=== PATIENT | female | born 1935 | race Caucasian/White ===

== ENCOUNTER → 2016-07-12 | Outpatient (CLI) | payer MEDICARE, BC ==
[~2016-07-12] MED LIST: CALTRATE-600 W600 MG PO; CARDI-OMEGA1000 MG PO; CENTRUM SILVER1 TA1 PO; COMPLETE SENIOR1 TA1 PO; DULERA1 ARO IH; MULTIVITAMIN FO1 CAP PO; OMEGA-3 FISH1000 MG PO; OYSCO 500500 M1 PO; PROAIR HFA0.09 MG/AC IH; RECLAST5 MG/100 M IV; RECLAST5 MG/1001 IV; SYNTHROID 0.0.025 MG PO; VITAMIN D31000 I1 PO; [UNRECOGNIZED DRUG - OTHER] PO
== END ==
LOC: COL.RAD 10:51
DX: R22.2 Localized swelling, mass and lump, trunk (principal); E78.5 Hyperlipidemia, unspecified
CPT/HCPCS: Q9967

== ENCOUNTER → 2016-08-09 | Outpatient (CLI) | payer MEDICARE, BC | LOC: COL.CARD 12:46 | DX: R41.3 Other amnesia (principal) ==

== ENCOUNTER → 2016-10-02 | Outpatient (CLI) | payer MEDICARE, BC | LOC: COL.RAD 08:07 | DX: G31.9 Degenerative disease of nervous system, unspecified (principal) | CPT/HCPCS: A9585 ==

== ENCOUNTER 2016-11-21 15:15 | Outpatient (RCR) | payer MEDICARE, BC | END 2016-11-22 07:42 | disposition home or self-care (01) | LOC: WSST 15:15 | DX: R47.01 Aphasia (principal) | CPT/HCPCS: G9159-GN; G9160-GN; G9161-GN ==

== ENCOUNTER → 2017-01-18 | Outpatient (CLI) | payer MEDICARE, BC | LOC: COL.RAD 10:17 | DX: K76.89 Other specified diseases of liver (principal) ==

== ENCOUNTER → 2018-05-02 | Outpatient (CLI) | payer MEDICARE, BC ==
[2018-05-02 18:36] LABS: COLLECTION METHOD CLEAN CATCH
[2018-05-02 18:47] LABS: MUCOUS Present /lpf; PH 5 (5-8); SQUAMOUS EPITHELIAL 0-2 /hpf; URINE APPEARANCE Clear; URINE BACTERIA None Seen /hpf; URINE BILIRUBIN Negative (NEGATIVE); URINE BLOOD Negative (NEGATIVE); URINE COLOR Yellow; URINE GLUCOSE Negative (NEGATIVE); URINE KETONE Negative (NEGATIVE); URINE LEUKOCYTE ESTERASE Trace (NEGATIVE); URINE NITRATE Negative (NEGATIVE); URINE PROTEIN(semi-quant) Negative (NEGATIVE); URINE UROBILINOGEN Negative (NEGATIVE)
== END ==
LOC: COL.LAB 18:16
PROVIDERS: Internal Medicine
DX: R41.82 Altered mental status, unspecified (principal)

== ENCOUNTER 2019-09-29 13:36 | Emergency (ER) | payer MEDICARE, BC ==
[~2019-09-29] VITALS: Ht 165.1 cm; Wt 63.6 kg
[2019-09-29 13:41] VITALS: TEMP 98.4
[2019-09-29 14:30] LABS: COLLECTION METHOD CLEAN CATCH
[2019-09-29 14:43] LABS: ALANINE AMINOTRANSFERASE 22 U/L (4-34); ALBUMIN 3.9 gm/dL (3.5-5.0); ALKALINE PHOSPHATASE 94 U/L (50-136); ANION GAP 7 mmol/L (7-16); AST,SGOT 33 U/L (15-37); BILIRUBIN,TOTAL 0.5 mg/dL (0.0-1.0); BLOOD UREA NITROGEN 15 mg/dL (7-17); CALCIUM 9.3 mg/dL (8.4-10.2); CARBON DIOXIDE 23 mmol/L (22-30); CHLORIDE 106 mmol/L (98-107); CREATININE, serum 0.78 (0.52-1.25); GLUCOSE 87 mg/dL (74-106); POTASSIUM 3.8 mmol/L (3.4-5.0); SODIUM 136 mmol/L (137-145); TOTAL PROTEIN 7.1 gm/dL (6.4-8.2)
[2019-09-29 14:44] LABS: BASO # 0.1 (0.0-0.2); BASO % 0.8 % (0.0-2.0); EOS # 0.2 (0.0-0.7); EOS % 2.9 % (0-4.0); GRAN # 3.2 (1.4-6.5); GRAN % 54.6 % (42.2-75.2); HEMATOCRIT 37.8 % (37.0-47.0); HEMOGLOBIN 12.6 g/dl (12.5-16.0); LYMPH # 1.8 (1.2-3.4); LYMPH % 30.2 % (20.0-51.0); MEAN CELL VOLUME 94 fl (80.0-100.0); MEAN CORPUSCULAR HEMOGLOBIN 31 pg (27.0-31.0); MEAN CORPUSCULAR HGB CONC 33 g/dl (33.0-37.0); MEAN PLATELET VOLUME 10.6 fl (7.4-10.4); MONO # 0.7 (0.1-0.6); MONO % 11.2 % (1.7-9.3); PLATELET COUNT 170 K/mm3 (130-400); RED BLOOD COUNT 4.04 M/mm3 (4.10-5.30); REDCELL DISTRIBUTION WIDTH-CV 13.8 % (11.5-14.5)
[2019-09-29 14:45] LABS: ACETAMINOPHEN < 10 ug/mL (10-30); ALCOHOL(ethanol),MEDICAL < 10 mg/dL; MUCOUS Present /lpf; PH 7 (5-8); SALICYLATE < 1.0 mg/dL; SQUAMOUS EPITHELIAL None Seen /hpf; URINE APPEARANCE Clear; URINE BACTERIA None Seen /hpf; URINE BILIRUBIN Negative (NEGATIVE); URINE BLOOD Negative (NEGATIVE); URINE COLOR Yellow; URINE GLUCOSE Negative (NEGATIVE); URINE KETONE Negative (NEGATIVE); URINE LEUKOCYTE ESTERASE Negative (NEGATIVE); URINE NITRATE Negative (NEGATIVE); URINE PROTEIN(semi-quant) Negative (NEGATIVE); URINE UROBILINOGEN Negative (NEGATIVE)
[2019-09-29 15:00] LABS: TRICYCLIC ANTIDEPRESS URINE NEGATIVE
[2019-09-29] MEDS ORDERED: LEXAPRO 5MG5 MG PO (18:52)
[2019-09-29] MEDS ORDERED: SEROQUEL 2525 MG/TAB PO (18:53)
[2019-09-29] MEDS ORDERED: EFFEXOR 3737.5 MG/TA PO (18:53)
[2019-09-29] MEDS ORDERED: NAMENDA5 MG PO (18:53)
[2019-09-29] MEDS ORDERED: MELATONIN5 M1 PO (18:54)
[2019-09-29] MEDS ORDERED: ARICEPT 5MG PO (18:54)
[2019-09-29] MEDS ORDERED: PRIL40 PO (18:55)
[2019-09-29 22:10] VITALS: BP 144/68; PULSE 78
== END 2019-09-29 22:10 ==
LOC: COL.ER 13:36
PROVIDERS: Emergency Medicine
DX: R45.851 Suicidal ideations (principal); F03.91 Unspecified dementia, unspecified severity, with behavioral disturbance
CPT/HCPCS: J2060

== ENCOUNTER 2020-05-11 13:42 | Emergency (ER) | payer MEDICARE, BC ==
[~2020-05-11] VITALS: Ht 167.6 cm; Wt 63.6 kg
[~2020-05-11 13:42] MED LIST changes: +ARICEPT 5MG PO; +EFFEXOR 3737.5 MG/TA PO; +LEXAPRO 5MG5 MG PO; +MELATONIN5 M1 PO; +NAMENDA5 MG PO; +PRIL40 PO; +SEROQUEL 2525 MG/TAB PO
[2020-05-11 13:47] VITALS: TEMP 97.9
--- NOTE | 2020-05-11 14:33 | NUR ---
die set up worker contacted Tamiko at the [facility] and confirmed that they do not have a bed at this time and state they may have an opening on Saturday. Tamiko states they are still awaiting paperwork from [facility]. Worker contacted Ira at [facility] and advised of the above information. Worker advised that patient would be discharged back to their care if patient was found to be medically stable. Worker advised that the hospital will fax labs and physician notes to the [facility]. Ira verbalized understanding of the above information. Worker provided Ira with a complete list of area [facility].
[2020-05-11 14:45] LABS: COLLECTION METHOD CLEAN CATCH
[2020-05-11 14:50] LABS: MUCOUS Present /lpf; PH 7 (5-8); SQUAMOUS EPITHELIAL 0-2 /hpf; URINE APPEARANCE Clear; URINE BACTERIA None Seen /hpf; URINE BILIRUBIN Negative (NEGATIVE); URINE BLOOD Negative (NEGATIVE); URINE COLOR Yellow; URINE GLUCOSE Negative (NEGATIVE); URINE KETONE Negative (NEGATIVE); URINE LEUKOCYTE ESTERASE Negative (NEGATIVE); URINE NITRATE Negative (NEGATIVE); URINE PROTEIN(semi-quant) 1+ (NEGATIVE); URINE UROBILINOGEN Negative (NEGATIVE)
[2020-05-11 15:06] LABS: TRICYCLIC ANTIDEPRESS URINE NEGATIVE
[2020-05-11 15:25] LABS: BASO % 0.4 % (0.0-2.0); EOS # 0.1 (0.0-0.7); EOS % 1.9 % (0-4.0); GRAN # 3.6 (1.4-6.5); GRAN % 70.7 % (42.2-75.2); HEMATOCRIT 40.9 % (37.0-47.0); HEMOGLOBIN 13.3 g/dl (12.5-16.0); LYMPH # 0.9 (1.2-3.4); LYMPH % 16.5 % (20.0-51.0); MEAN CELL VOLUME 97 fl (80.0-100.0); MEAN CORPUSCULAR HEMOGLOBIN 32 pg (27.0-31.0); MEAN CORPUSCULAR HGB CONC 33 g/dl (33.0-37.0); MONO # 0.5 (0.1-0.6); MONO % 10.3 % (1.7-9.3); PLATELET COUNT 221 K/mm3 (130-400); REDCELL DISTRIBUTION WIDTH-CV 12.7 % (11.5-14.5)
[2020-05-11 15:36] LABS: ALANINE AMINOTRANSFERASE 16 U/L (4-34); ALBUMIN 4.2 gm/dL (3.5-5.0); ALKALINE PHOSPHATASE 87 U/L (50-136); ANION GAP 7 mmol/L (7-16); AST,SGOT 29 U/L (15-37); BILIRUBIN,TOTAL 0.6 mg/dL (0.0-1.0); BLOOD UREA NITROGEN 14 mg/dL (7-17); CALCIUM 9.3 mg/dL (8.4-10.2); CARBON DIOXIDE 29 mmol/L (22-30); CHLORIDE 108 mmol/L (98-107); CREATININE, serum 0.91 (0.52-1.25); GLUCOSE 109 mg/dL (74-106); POTASSIUM 3.4 mmol/L (3.4-5.0); SODIUM 144 mmol/L (137-145); TOTAL PROTEIN 7.6 gm/dL (6.4-8.2)
[2020-05-11 15:45] LABS: ACETAMINOPHEN < 10 ug/mL (10-30); ALCOHOL(ethanol),MEDICAL < 10 mg/dL; SALICYLATE < 1.0 mg/dL
[2020-05-11 16:50] VITALS: BP 150/68; PULSE 77
== END 2020-05-11 17:10 | disposition home or self-care (01) ==
LOC: COL.ER 13:42
PROVIDERS: Emergency Medicine
DX: F03.91 Unspecified dementia, unspecified severity, with behavioral disturbance (principal); F41.9 Anxiety disorder, unspecified; Z86.16 Personal history of COVID-19; Z88.8 Allergy status to other drugs, medicaments and biological substances
CPT/HCPCS: J1200; J1630; J2060